=== PATIENT | male | born 1945 | race Caucasian/White ===

== ENCOUNTER 2018-07-21 15:43 | Emergency (ER) | payer MEDICARE, OTHER ==
[~2018-07-21] VITALS: Ht 188 cm; Wt 104.3 kg
[~2018-07-21 15:43] MED LIST: EPIN.3I IM
[2018-07-21 16:36] LABS: BASOPHILS ABSOLUTE AUTO 0.03 K/mm3 (0.00-0.23); BASOPHILS PERCENT AUTO 0 % (0-2); EOSINOPHILS ABSOLUTE AUTO 0.14 K/mm3 (0.00-0.68); EOSINOPHILS PERCENT AUTO 2 % (0-6); Hematocrit 34.1 % (37.0-53.0); Hemoglobin 11.5 g/dL (13.5-17.5); IMMATURE GRAN ABSOLUTE AUTO 0.02 K/mm3 (0.00-0.10); IMMATURE GRAN PERCENT AUTO 0 % (0-1); LYMPHOCYTES PERCENT AUTO 12 % (21-46); MONOCYTES ABSOLUTE AUTO 0.59 K/mm3 (0.16-1.47); MONOCYTES PERCENT AUTO 7 % (4-13); Mean Corpuscular HGB 29.6 pg (26.0-34.0); Mean Corpuscular HGB Conc 33.7 g/dL (31.5-36.5); Mean Corpuscular Volume 88 fL (80-100); Mean Platelet Volume 10.3 fL (9.1-12.4); NEUTROPHILS ABSOLUTE AUTO 7.21 K/mm3 (1.96-9.15); NEUTROPHILS PERCENT AUTO 79 % (41-73); Platelet Count 479 K/mm3 (150-400); Red Blood Cell Count 3.89 M/mm3 (4.30-5.90); White Blood Cell Count 9.09 K/mm3 (4.00-11.30)
[2018-07-21 17:07] LABS: Albumin/Globulin Ratio 0.6 (0.8-1.8); Bilirubin, Total 0.5 mg/dL (0.1-1.0); Bun/Creatinine Ratio 24.1 (12.0-20.0); Calcium, Blood 10.1 mg/dL (8.5-10.1); Creatinine, Blood 1.74 mg/dL (0.60-1.20); Globulin, Blood 4.9 g/dL (2.2-4.0); Potassium, Blood 3.5 mmol/L (3.5-5.5); Total Protein, Blood 7.9 g/dL (6.4-8.2)
[2018-07-21] MEDS ORDERED: LAMO100 PO ×2 (19:28→19:33)
[2018-07-21] MEDS ORDERED: Azor 10-40 MG1 EACH (19:29)
[2018-07-21] MEDS ORDERED: HYDCHL25 PO (19:29)
[2018-07-21] MEDS ORDERED: ALLO100 PO (19:29)
[2018-07-21] MEDS ORDERED: METF500C PO (19:31)
[2018-07-21] MEDS ORDERED: INDO50S PO (19:31)
[2018-07-21] MEDS ORDERED: GLIP5 PO (19:32)
[2018-07-21] MEDS ORDERED: BUPR75 PO (19:32)
[2018-07-21] MEDS ORDERED: SITA50T2 PO (19:32)
[2018-07-21] MEDS ORDERED: GEMF600 PO (19:32)
[2018-07-21] MEDS ORDERED: ATOR40TA PO (19:33)
[2018-07-21] MEDS ORDERED: DOXA2 PO (19:33)
[2018-07-21 20:34] LABS: Free Thyroxine 1.2 ng/dL (0.70-1.60)
[2018-07-21 20:35] LABS: Source, Urine Clean Catch
[2018-07-21 20:36] LABS: Thyroid Stimulating Hormone 4.03 uIU/mL (0.360-4.800)
[2018-07-21 20:44] LABS: Appearance, Urine Hazy (Clear); Blood, Urine 2+ (Neg); Color, Urine Yellow (P-Yellow); Glucose Qualitative, Urine Neg (Neg); Ketones, Urine Neg (Neg); Leukocyte Esterase, Urine 3+ (Neg); Nitrite, Urine Pos (Neg); Protein, Urine 2+ (Neg); Urobilinogen, Urine 1+ (Normal)
[2018-07-21 20:52] LABS: Bilirubin, Urine 1+ (Neg)
[2018-07-21 20:53] LABS: White Blood Cells, Urine TNTC /hpf (0-5)
[2018-07-21 20:54] LABS: Bacteria Many /hpf; Red Blood Cells, Urine 0-2 /hpf (0-2); Squamous Epithelial Cells Not Seen /hpf (Few)
[2018-07-21 21:15] LABS: Percent Saturation 11.1 % (20.0-50.0)
[2018-07-21] MEDS ORDERED: Cipro500 MG PO (21:47)
[2018-07-21] MEDS ORDERED: Fergon240 M1 PO (21:47)
== END 2018-07-21 22:23 | disposition home or self-care (01) ==
LOC: ER 15:43
PROVIDERS: Internal Medicine; Physician Assistant
DX: N39.0 Urinary tract infection, site not specified (principal); D50.9 Iron deficiency anemia, unspecified; E11.9 Type 2 diabetes mellitus without complications; E78.5 Hyperlipidemia, unspecified; F32.9 Major depressive disorder, single episode, unspecified; I10 Essential (primary) hypertension; Z79.899 Other long term (current) drug therapy; Z79.84 Long term (current) use of oral hypoglycemic drugs; Z87.891 Personal history of nicotine dependence
CPT/HCPCS: 36415; 71046; 80053; 81001; 82728; 83540; 83550; 84439; 84443; 85025; 87077; 87086; 87186; 93005; 93010; 96365; 99283-25; J0744

== ENCOUNTER → 2018-07-31 | Outpatient (CLI) | payer MEDICARE, OTHER ==
[~2018-07-31] MED LIST changes: +ALLO100 PO; +ATOR40TA PO; +Azor 10-40 MG1 EACH; +BUPR75 PO; +Cipro500 MG PO; +DOXA2 PO; +Fergon240 M1 PO; +GEMF600 PO; +GLIP5 PO; +HYDCHL25 PO; +INDO50S PO; +LAMO100 PO; +METF500C PO; +SITA50T2 PO
[2018-08-02 14:28] LABS: Stool Occult Bld Immuno 1 Negative (NEGATIVE); Stool Occult Bld Immuno 2 Negative (NEGATIVE); Stool Occult Bld Immuno 3 Negative (NEGATIVE)
== END | disposition home or self-care (01) ==
LOC: EDSTATUS 07-22 09:30 → LAB FUT 07-22 09:30 → LAB EV 10:15
PROVIDERS: Internal Medicine
DX: D50.9 Iron deficiency anemia, unspecified (principal)
CPT/HCPCS: G0328

== ENCOUNTER 2019-04-08 06:03 | Day surgery (SDC) | payer MEDICARE, OTHER ==
[~2019-04-08] VITALS: Ht 188 cm; Wt 108.3 kg
[~2019-04-08 06:03] MED LIST changes: -Azor 10-40 MG1 EACH; +Azor 10-40 MG1 EACH PO; +Ferrous Sulfat325 M2 PO; +GLIP2.5ER PO; +Glucophage1000 MG PO; +Indomethacin50 MG PO; +LINZESS145 MCG PO; +LO-DOSE ASPIRIN81 MG PO; +MAXIMUM DAILY1 EACH PO
== END 2019-04-08 08:23 | disposition home or self-care (01) ==
LOC: ORSCSDS 06:03
PROVIDERS: Surgery
PROC: 0DJD8ZZ Inspection of Lower Intestinal Tract, Via Natural or Artificial Opening Endoscopic (ICD-10-PCS; principal; 2019-04-08 07:30)
DX: Z12.11 Encounter for screening for malignant neoplasm of colon (principal); Z80.0 Family history of malignant neoplasm of digestive organs; G47.33 Obstructive sleep apnea (adult) (pediatric); I10 Essential (primary) hypertension; E11.9 Type 2 diabetes mellitus without complications; Z87.891 Personal history of nicotine dependence; Z79.899 Other long term (current) drug therapy
CPT/HCPCS: 82947; J0461; J2405; J2704; J7120

== ENCOUNTER → 2019-05-24 | Outpatient (CLI) | payer MEDICARE, OTHER | END | disposition home or self-care (01) | LOC: LAB SHORT 14:47 → PLD 14:47 | DX: D22.111 Melanocytic nevi of right upper eyelid, including canthus (principal) | CPT/HCPCS: 88305 ==

== ENCOUNTER 2024-10-11 13:48 | Day surgery (SDC) | payer MEDICARE ==
[~2024-10-11] VITALS: Ht 188 cm; Wt 94.8 kg
[~2024-10-11 13:48] MED LIST changes: +Atropine Sulfate 0.1 MG/ML 10ML SYR ONE; +Glycopyrrolate 0.2 MG/ML 1MLVIAL ONE; +Lactated Ringer's 1,000 ML IV ONE; +Lidocaine 2% 5 ML SDV ONE; +Lidocaine HCl/Pf 1% 5 ML VIAL ONE; +Methylene Blue 1% 100 MG/10 ML VIAL ONE; +Ondansetron HCl 2 MG / ML 2ML Vial ONE; +ePHEDrine Sulfate 50 MG/ML 1ML Injection ONE
[2024-10-11] MEDS ORDERED: LEVSOD75 (14:04)
[2024-10-11] MEDS ORDERED: BUPR150ER (14:09)
[2024-10-11] MEDS ORDERED: Budeprion Xl300 MG (14:09)
[2024-10-11] MEDS ORDERED: GEMF600 (14:12)
[2024-10-11] MEDS ORDERED: ERGO50000 (14:13)
[2024-10-11] MEDS ORDERED: B-12 COMPL1000 MCG/2 (14:13)
[2024-10-11] MEDS ORDERED: IRON BISGLYCINA28 MG (14:14)
[2024-10-11] MEDS ORDERED: propofoL 50 ML IV ONE (14:53)
[2024-10-11] MEDS ORDERED: Lactated Ringer's 1,000 ML IV ONE (14:54)
[2024-10-11 15:58] VITALS: BP 131/85
== END 2024-10-11 16:35 | disposition home or self-care (01) ==
LOC: ORSCSDS 13:48
PROVIDERS: Surgery
PROC: 0DJD8ZZ Inspection of Lower Intestinal Tract, Via Natural or Artificial Opening Endoscopic (ICD-10-PCS; principal; 2024-10-11 15:30)
DX: Z12.11 Encounter for screening for malignant neoplasm of colon (principal); Z80.0 Family history of malignant neoplasm of digestive organs; E11.9 Type 2 diabetes mellitus without complications; E78.5 Hyperlipidemia, unspecified; Z85.46 Personal history of malignant neoplasm of prostate; I71.40 Abdominal aortic aneurysm, without rupture, unspecified; I12.9 Hypertensive chronic kidney disease with stage 1 through stage 4 chronic kidney disease, or unspecified chronic kidney disease; E11.22 Type 2 diabetes mellitus with diabetic chronic kidney disease; N18.30 Chronic kidney disease, stage 3 unspecified; K21.9 Gastro-esophageal reflux disease without esophagitis; G47.33 Obstructive sleep apnea (adult) (pediatric); Z79.84 Long term (current) use of oral hypoglycemic drugs; Z79.82 Long term (current) use of aspirin; Z79.899 Other long term (current) drug therapy
CPT/HCPCS: 82947; J0461; J2003; J2405; J2704; J7120; Q9968